=== PATIENT | male | born 1980 | race Native Hawaiian/Other Pacific Islander ===

== ENCOUNTER 2020-08-19 00:28 | Emergency (ER) | payer OTHER ==
[~2020-08-19] VITALS: Ht 185.4 cm; Wt 90.7 kg
[2020-08-19 00:34] VITALS: BP 129/62; TEMP 98.4
== END 2020-08-19 01:45 | disposition still patient (30) ==
LOC: ED 00:28
DX: M54.5 Low back pain (principal); G89.29 Other chronic pain; V89.2XXA Person injured in unspecified motor-vehicle accident, traffic, initial encounter; Y92.89 Other specified places as the place of occurrence of the external cause
CPT/HCPCS: 96372; 99283; J1885

== ENCOUNTER 2020-09-18 14:56 | Emergency (ER) | payer OTHER ==
[~2020-09-18] VITALS: Ht 185.4 cm; Wt 89.8 kg
[2020-09-18 15:32] LABS: PLATELET COUNT 218 K/uL (142-355)
[2020-09-18 15:43] LABS: POTASSIUM 3.8 mmol/L (3.6-5.2); SODIUM 139 mmol/L (136-145)
[2020-09-18 15:57] LABS: PARTIAL THROMBOPLASTIN TIME 22.5 SECONDS (24.5-33.6)
[2020-09-18 16:35] VITALS: BP 144/80; TEMP 98.6
== END 2020-09-18 16:35 | disposition home or self-care (01) ==
LOC: ED 14:56
PROVIDERS: Hospitalist
DX: G89.4 Chronic pain syndrome (principal); I10 Essential (primary) hypertension; F17.210 Nicotine dependence, cigarettes, uncomplicated
CPT/HCPCS: 80053; 82550; 83880; 84484; 85027; 85379; 85610; 85730; 93005; 96372; 99283; J3410; Q0177

== ENCOUNTER 2020-12-10 16:24 | Emergency (ER) | payer OTHER ==
[~2020-12-10] VITALS: Ht 185.5 cm; Wt 88.5 kg
[2020-12-10 16:30] VITALS: TEMP 97.3
[2020-12-10 18:02] VITALS: BP 118/72
== END 2020-12-10 18:04 | disposition home or self-care (01) ==
LOC: ED 16:24
DX: G89.4 Chronic pain syndrome (principal); F19.10 Other psychoactive substance abuse, uncomplicated
CPT/HCPCS: 99282